=== PATIENT | female | born 1955 | race Caucasian/White ===

== ENCOUNTER 2021-12-11 12:23 | Outpatient (CLI) | payer MEDICARE | END 2021-12-11 12:24 | disposition home or self-care (01) | LOC: CSHMAMMO 12:23 | PROVIDERS: ATTEND Obstetrics & Gynecology | DX: Z12.31 Encounter for screening mammogram for malignant neoplasm of breast (principal) | CPT/HCPCS: 77063; 77067 ==

== ENCOUNTER 2023-01-17 12:25 | Outpatient (CLI) | payer MEDICARE | END 2023-01-17 12:26 | disposition home or self-care (01) | LOC: CSHMAMMO 12:25 | PROVIDERS: ATTEND Obstetrics & Gynecology | DX: Z12.31 Encounter for screening mammogram for malignant neoplasm of breast (principal) | CPT/HCPCS: 77063; 77067 ==

== ENCOUNTER 2024-03-01 12:36 | Outpatient (CLI) | payer MEDICARE | END 2024-03-01 12:37 | disposition home or self-care (01) | LOC: CSHMAMMO 12:36 | PROVIDERS: ATTEND Obstetrics & Gynecology | DX: Z12.31 Encounter for screening mammogram for malignant neoplasm of breast (principal) | CPT/HCPCS: 77063; 77067 ==